=== PATIENT | female | born 1990 | race Caucasian/White ===

== ENCOUNTER 2018-10-31 21:21 | Emergency (ER) | payer SELFPAY, MEDICAID ==
[2018-11-01] MEDS: ACETAMINOPHEN 325 MG TAB PO (03:16)
[2018-11-01] MEDS: KETOROLAC 30 MG INJ IM (03:44)
== END 2018-11-01 04:39 | disposition home or self-care (01) ==
LOC: FTE 21:21
DX: J06.9 Acute upper respiratory infection, unspecified (principal)
CPT/HCPCS: 81025; 96372; 99284-25